=== PATIENT | male | born 1985 | race Two or more races ===

== ENCOUNTER 2016-12-25 14:13 | Emergency (ER) | payer SELFPAY ==
[~2016-12-25] VITALS: Ht 152.4 cm; Wt 80.3 kg
[2016-12-25 15:06] LABS: Basophils # (auto) 0 uL; Basophils % (auto) 0.4 % (0.0-2.0); Eosinophils # (auto) 0 uL; Eosinophils % (auto) 0.7 % (0.0-7.0); Hematocrit 43.1 % (41.0-53.0); Lymphocytes # (auto) 1.6 uL; Lymphocytes % (auto) 24.6 % (10.0-50.0); Mean Corpuscular Hemoglobin 30.4 pg (28.0-32.0); Mean Corpuscular Hgb Conc. 34.8 g/dL (32.0-36.0); Mean Corpuscular Volume 87.4 fL (80.0-100.0); Mean Platelet Volume 7.2 fL (7.4-10.4); Monocytes # (auto) 0.4 uL; Monocytes % (auto) 5.4 % (0.0-12.0); Neutrophils # (auto) 4.5 uL; Neutrophils % (auto) 68.9 % (37.0-80.0); Platelet Count (auto) 313 10^3/uL (140-450); Red Cell Distribution Width 13.2 % (11.6-16.0); White Blood Cell 6.6 10^3/uL (4.4-10.8)
[2016-12-25 15:32] LABS: Albumin 3.8 g/dL (3.4-5.0); BUN/Creatinine Ratio 8.6; Bilirubin, Total 0.2 mg/dL (0.2-1.0); Calcium 7.5 mg/dL (8.5-10.1); Potassium 3.3 mmol/L (3.5-5.1); Total Protein 7.4 g/dL (6.4-8.2)
[2016-12-25] MEDS: SODIUM CHLORIDE 0.9% 2,000 ML IV ONE (17:22)
[2016-12-25 18:40] VITALS: BP 128/83
[2016-12-25] MEDS: ACETAMINOPHEN 325 MG TAB PO ONE (18:53)
[2016-12-25] MEDS: TETANUS-DIPTH-ACEL PERTUSSIS 0.5ML SYRG IM ONE (18:53)
[2016-12-25] MEDS ORDERED: POTASSIUM CHL 20 Meq TABLET PO ONE (19:30)
[2016-12-26] MEDS ORDERED: THIAMINE INJ 100 MG, MULTIPLE VITAMIN 10 ML, FOLIC ACID 1 MG, MAGNESIUM SULF SDV 50% 8 ... IV SCH ×5 (12:00)
== END 2016-12-25 19:27 | disposition home or self-care (01) ==
LOC: EDBD 14:13 → ER 14:13
DX: S05.12XA Contusion of eyeball and orbital tissues, left eye, initial encounter (principal); F10.10 Alcohol abuse, uncomplicated; F17.210 Nicotine dependence, cigarettes, uncomplicated; Y08.89XA Assault by other specified means, initial encounter; Y93.89 Activity, other specified; Y99.8 Other external cause status; Y92.89 Other specified places as the place of occurrence of the external cause; Z23 Encounter for immunization
CPT/HCPCS: 36415; 70450; 70486; 71010; 80053; 80320; 85025; 90471; 90715; 96360; 99285; J7030